=== PATIENT | male | born 1995 | race Caucasian/White ===

== ENCOUNTER 2018-04-29 08:52 | Emergency (ER) | payer OTHER ==
[2018-04-29 09:00] VITALS: BP 141/88
[2018-04-29] MEDS ORDERED: DEXAMETHASONE 10 MG/ML VIAL PO ONE (09:21)
--- NOTE | 2018-04-29 09:21 | EDPHY ---
General Time Seen by Provider: 04/29/18 09:01 Narrative: CHIEF COMPLAINT: Poison parul rash HISTORY OF PRESENT ILLNESS: Patient presents with complaints of poison parul rash. This 1st erupted 1-2 days ago. It is located on both upper extremities. Started in the anterior portions of the arm over the antecubital region, and has spread superiorly to the axilla bilaterally. He also felt some difficulty breathing and swallowing yesterday that has resolved. The rash is extremely pruritic. He is concerned that is poison parul make it worse. He thinks he sustained this when he was using a weed eater on Saturday or Saturday, and he was wearing sure with no sleeves. He has no involvement of the chest, abdomen or back. No other associated complaints or modifying factors. MEDICAL/SURGICAL/SOCIAL HISTORY: Uncomplicated. Denies any tobacco use. 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 There is no edema of the airway. No erythema or exudate. No lesions of the oral mucosa. Cardiovascular: Pulses normal throughout. Brisk cap refill. He has regular rate rhythm no murmur. Respiratory: Lungs are clear in all [place]. No crackles, wheezing or distress. Neurological: A&O, sensory symmetric, strength symmetric Skin: Warm and dry. Erythematous rash with circular lesions and linear excoriations of both upper extremities anteriorly. Consistent with uroshiol rash Extremities: Nontender, no pedal edema. Symmetric range of motion DIFFERENTIAL DIAGNOSES: Including but not limited to contact dermatitis, dermatitis, poison parul MDM: 9:05 a.m. Acute dermatitis to the upper extremities bilaterally with axilla involvement. These are the areas of uncovered skin while he was using a weed eater several days ago. The rash is consistent with poison parul. There is no involvement of the face or of his airway. Vital signs are within normal limits. I will treat him with 1st dose of steroid here, and provided prescription of steroid burst. I have also provided prescription of hydroxyzine for symptomatic control, as well as topical triamcinolone prescription. We discussed follow up here in 48- 72 hours if no improvement or sooner for any worsening symptoms, chest pain, shortness of breath, difficulty breathing or wheezing. He is comfortable this plan and discharged home stable condition. SUPERVISION: This patient was independently evaluated without direct involvement of or examination by the attending physician. ED Precautions: Worsening pain. Erythema, edema, cyanosis, pallor, paresthesia or anesthesia. - History Smoking Status: Never smoked - Objective Vital Signs: Initial Vital Signs Temperature (C) 97.5 F 04/29/18 08:57 Heart Rate 88 04/29/18 08:57 Respiratory Rate 18 04/29/18 08:57 Blood Pressure 141/88 H 04/29/18 08:57 O2 Sat (%) 97 04/29/18 08:57 O2 Delivery Mode Room Air Allergies/Adverse Reactions: No Known Allergies Allergy (Verified 04/29/18 08:56) Home Medications: Medication Instructions Recorded Triamcinolone 0.1% [Triamcinolone 1 ruth TP TID #1 cream 04/29/18 0.1% Cream] hydrOXYzine HCL [Hydroxyzine HCl] 50 mg PO Q6-8PRN PRN #12 tablet 04/29/18 predniSONE [Deltasone] 60 mg PO DAILY #15 tablet 04/29/18 Departure - Departure Disposition: Home, Routine, Self-Care Clinical Impression: Contact dermatitis and eczema due to plant Condition: Good Instructions: Poison Parul (ED) Additional Instructions: 1. Prednisone steroid burst for 5 days. First dose today when you fill the prescription 2. Topical triamcinolone 3 times daily, 1st dose when he fill a prescription 3. Topical [id number] Benadryl cream as needed for itching 4. Topical Zanfel poison parul treatment [id number] as needed Referrals: Physician,Emergency Dept, MD [Medical Doctor] - As per Instructions Prescriptions: hydrOXYzine HCL [Hydroxyzine HCl] 50 mg PO Q6-8PRN PRN #12 tablet PRN Reason: Itching predniSONE [Deltasone] 60 mg PO DAILY #15 tablet Triamcinolone 0.1% [Triamcinolone 0.1% Cream] 1 ruth TP TID #1 cream
== END 2018-04-29 09:35 | disposition home or self-care (01) ==
LOC: SUPCPDRO 08:52
DX: L25.5 Unspecified contact dermatitis due to plants, except food (principal)
CPT/HCPCS: J1100